=== PATIENT | female | born 1940 | race Caucasian/White ===

== ENCOUNTER 2019-05-23 07:20 | Inpatient (IN) ==
[2019-05-23] MEDS ORDERED: DILTIAZEM 50 MG/10 ML VIAL IV STA (07:44)
[2019-05-23] MEDS ORDERED: DILTIAZEM 50 MG/10 ML VIAL IV ONE (07:46)
[2019-05-23 07:50] LABS: Basophils % 0.3 % (0.0-0.8); Eosinophils # 0.2 10*3/uL (0.0-0.87); Hematocrit 46.4 VOL% (35.7-47.0); Hemoglobin 15.4 GM/DL (12.0-16.0); Immature Granulocytes % 0.3 %; Immature Granulocytes Absolute 0.03 #; Lymphocytes % 44.9 % (21.3-54.2); Mean Corpuscular HGB Conc 33.2 GM/DL (32-36); Mean Corpuscular Volume 89.6 FL (87-102); Monocytes % 7.3 % (1.7-12.7); Neutrophils % 45.2 % (38.7-73.9); Platelet Count 233 T/CUMM (130-400); Red Blood Count 5.18 MC/CUMM (3.8-5.5); Red Cell Distribution Width 12.3 % (9.3-17.3)
[2019-05-23 08:08] LABS: Alanine Aminotransferase 25 U/L (13-56); Albumin 3.9 G/DL (3.4-5.0); Alkaline Phosphatase 67 U/L (45-117); Aspartate Amino Transferase 20 U/L (0-37); Blood Urea Nitrogen 14 MG/DL (7-18); Calcium 9.8 MG/DL (8.5-10.1); Glucose 126 MG/DL (74-106); Osmolality,Calculated 277.7 MOS/KG (273-304); Total Protein 8.2 G/DL (6.4-8.3); Troponin I < 0.015 NG/ML (0.00-0.045)
[2019-05-23] MEDS ORDERED: dilTIAZem Drip 125 MG/125 ML PREMIX IV ONE (08:09)
[2019-05-23] MEDS ORDERED: ACETAMINOPHEN 325 MG TABLET PO PRN (09:05)
[2019-05-23] MEDS ORDERED: ONDANSETRON 4 MG/2 ML VIAL IV PRN (09:05)
[2019-05-23] MEDS ORDERED: NEBIVOLOL 5 MG TABLET PO SCH (11:00)
[2019-05-23 11:07] LABS: Risk Ratio 2.84; Thyroid Stimulating Hormone 3.57 uIU/ml (0.358-3.74); VLDL CHOLESTEROL 26.6 MG/DL
[2019-05-23] MEDS: dilTIAZem Drip 125 MG/125 ML PREMIX IV SCH (11:31)
[2019-05-23] MEDS: ENOXAPARIN 60 MG/0.6 ML SYRINGE SUBCUT SCH ×2 (12:10→22:20)
[2019-05-23] MEDS: CALCIUM (CARBONATE)/VITAMIN D 600 MG-400 UNIT TABLET PO SCH (12:10)
[2019-05-23] MEDS: EZETIMIBE 10 MG TABLET PO SCH (12:10)
[2019-05-23 12:57] LABS: PT Patient Result 10.5 SECS (9.6-12.2)
[2019-05-23] MEDS: DILTIAZEM 30 MG TABLET PO SCH ×2 (16:38→21:40)
[2019-05-23] MEDS: NEBIVOLOL 5 MG PO SCH ×2 (16:38→21:40)
[2019-05-23] MEDS: WARFARIN 4 MG TABLET PO SCH (18:06)
[2019-05-24 05:56] LABS: Basophils % 0.2 % (0.0-0.8); Eosinophils # 0.2 10*3/uL (0.0-0.87); Eosinophils % 2.4 % (0.00-10.9); Hematocrit 41.8 VOL% (35.7-47.0); Hemoglobin 13.9 GM/DL (12.0-16.0); Immature Granulocytes % 0.3 %; Immature Granulocytes Absolute 0.02 #; Lymphocytes # 1.8 10*3/uL (1.4-4.0); Lymphocytes % 28.9 % (21.3-54.2); Mean Corpuscular HGB Conc 33.3 GM/DL (32-36); Mean Corpuscular Volume 90.5 FL (87-102); Mean Platelet Volume 11.2 FL (9.6-12.0); Monocytes % 9.1 % (1.7-12.7); Neutrophils % 59.1 % (38.7-73.9); Platelet Count 188 T/CUMM (130-400); Red Blood Count 4.62 MC/CUMM (3.8-5.5); Red Cell Distribution Width 12.5 % (9.3-17.3); White Blood Count 6.1 T/CUMM (4-12)
[2019-05-24 06:04] LABS: PT Patient Result 10.6 SECS (9.6-12.2)
[2019-05-24 06:12] LABS: Calcium 8.8 MG/DL (8.5-10.1); Osmolality,Calculated 275.7 MOS/KG (273-304)
[2019-05-24] MEDS ORDERED: traZODone 50 MG TABLET PO PRN (08:22)
[2019-05-24] MEDS ORDERED: LACTULOSE 20 GM/30 ML UDCUP PO PRN (08:22)
[2019-05-24] MEDS ORDERED: MAGNESIUM SULF RIDER 4 GM in PREMIX 1 EACH IV PRN (08:22)
[2019-05-24] MEDS ORDERED: guaiFENesin/DM ER 600-30 MG TABLET PO PRN (08:22)
[2019-05-24] MEDS ORDERED: MAGNESIUM SULF RIDER 2 GM in PREMIX 1 EACH IV PRN (08:22)
[2019-05-24] MEDS ORDERED: DOCUSATE SODIUM 100 MG CAPSULE PO PRN (08:22)
[2019-05-24] MEDS ORDERED: POTASSIUM CHLORIDE 20 MEQ TABLET PO PRN (08:22)
[2019-05-24] MEDS ORDERED: NEBIVOLOL 5 MG PO SCH (08:34)
[2019-05-24] MEDS ORDERED: DILTIAZEM 30 MG TABLET PO SCH (09:00)
[2019-05-24] MEDS: PANTOPRAZOLE 40 MG TABLET PO SCH (09:01)
[2019-05-24] MEDS: MULTIVITAMIN (CENTRUM) TABLET PO SCH (09:01)
[2019-05-24] MEDS: OMEGA 3 ACID ETHYL ESTERS 1 GM CAPSULE PO SCH ×2 (09:02→09:08)
[2019-05-24] MEDS: ASPIRIN EC 81 MG TABLET PO SCH (09:02)
[2019-05-24] MEDS: EZETIMIBE 10 MG TABLET PO SCH (09:02)
[2019-05-24] MEDS: CALCIUM (CARBONATE)/VITAMIN D 600 MG-400 UNIT TABLET PO SCH ×2 (09:02→09:07)
[2019-05-24] MEDS: MAGNESIUM OXIDE 400 MG TABLET PO SCH (09:02)
[2019-05-24] MEDS: dilTIAZem Drip 125 MG/125 ML PREMIX IV SCH (09:12)
[2019-05-24] MEDS: OXYBUTYNIN 5 MG TABLET PO SCH (10:55)
[2019-05-24] MEDS: GLUCOSAMINE 500 MG TABLET PO SCH (10:55)
[2019-05-24] MEDS ORDERED: DILTIAZEM CD 120 MG CAPSULE PO ONE (11:36)
[2019-05-24] MEDS: CARVEDILOL 3.125 MG TABLET PO SCH ×2 (12:26→21:09)
[2019-05-24] MEDS: ENOXAPARIN 60 MG/0.6 ML SYRINGE SUBCUT SCH (12:34)
[2019-05-24] MEDS: WARFARIN 4 MG TABLET PO SCH (17:04)
[2019-05-25] MEDS: ENOXAPARIN 60 MG/0.6 ML SYRINGE SUBCUT SCH ×2 (00:51→12:14)
[2019-05-25 05:50] LABS: PT Patient Result 11.2 SECS (9.6-12.2)
[2019-05-25] MEDS ORDERED: WARFARIN 4 MG TABLET PO SCH (06:54)
[2019-05-25] MEDS ORDERED: DILTIAZEM CD 240 MG CAPSULE PO SCH (09:00)
[2019-05-25] MEDS: dilTIAZem Drip 125 MG/125 ML PREMIX IV SCH (09:50)
[2019-05-25] MEDS: OMEGA 3 ACID ETHYL ESTERS 1 GM CAPSULE PO SCH ×2 (09:51→10:00)
[2019-05-25] MEDS: MULTIVITAMIN (CENTRUM) TABLET PO SCH (09:51)
[2019-05-25] MEDS: GLUCOSAMINE 500 MG TABLET PO SCH (09:52)
[2019-05-25] MEDS: ASPIRIN EC 81 MG TABLET PO SCH (09:52)
[2019-05-25] MEDS: MAGNESIUM OXIDE 400 MG TABLET PO SCH (09:52)
[2019-05-25] MEDS: PANTOPRAZOLE 40 MG TABLET PO SCH ×2 (09:52→10:00)
[2019-05-25] MEDS: EZETIMIBE 10 MG TABLET PO SCH (09:52)
[2019-05-25] MEDS: CALCIUM (CARBONATE)/VITAMIN D 600 MG-400 UNIT TABLET PO SCH ×2 (09:52→10:00)
[2019-05-25] MEDS: CARVEDILOL 3.125 MG TABLET PO SCH (09:52)
[2019-05-25] MEDS: OXYBUTYNIN 5 MG TABLET PO SCH (09:55)
[2019-05-25 12:08] VITALS: BP 100/61
== END 2019-05-25 14:42 | disposition home or self-care (01) | DRG 309 ==
LOC: SUATTDRO → N.ED 07:20 → N.EDINP 09:05 → N.TELEN 10:57
PROVIDERS: ADMIT Internal Medicine; ATTEND Internal Medicine Cardiovascular Disease

== ENCOUNTER 2019-05-28 16:59 | Inpatient (IN) ==
[2019-05-28] MEDS ORDERED: ONDANSETRON 4 MG/2 ML VIAL IV PRN (17:01)
[2019-05-28] MEDS ORDERED: guaiFENesin/DM ER 600-30 MG TABLET PO PRN (17:01)
[2019-05-28] MEDS ORDERED: MORPHINE 4 MG/1 ML VIAL IV PRN (17:01)
[2019-05-28] MEDS ORDERED: diphenhydrAMINE CAP 25 MG CAPSULE PO PRN (17:01)
[2019-05-28] MEDS ORDERED: LACTULOSE 20 GM/30 ML UDCUP PO PRN (17:01)
[2019-05-28] MEDS ORDERED: POTASSIUM CHLORIDE 20 MEQ TABLET PO PRN (17:01)
[2019-05-28] MEDS ORDERED: MAGNESIUM SULF RIDER 4 GM in PREMIX 1 EACH IV PRN (17:01)
[2019-05-28] MEDS ORDERED: MAGNESIUM SULF RIDER 2 GM in PREMIX 1 EACH IV PRN (17:01)
[2019-05-28 20:02] LABS: Troponin I < 0.015 NG/ML (0.00-0.045)
[2019-05-28] MEDS ORDERED: DIGOXIN 0.5 MG/2 ML AMP IV ONE (20:12)
[2019-05-28] MEDS ORDERED: CARVEDILOL 3.125 MG TABLET PO SCH (21:00)
[2019-05-28] MEDS: FUROSEMIDE 40 MG/4 ML VIAL IV SCH (22:06)
[2019-05-28] MEDS: dilTIAZem Drip 125 MG/125 ML PREMIX IV SCH (22:10)
[2019-05-28 22:26] LABS: Troponin I < 0.015 NG/ML (0.00-0.045)
[2019-05-28] MEDS: ZALEPLON 5 MG CAPSULE PO PRN (22:51)
[2019-05-28] MEDS: ACETAMINOPHEN 325 MG TABLET PO PRN (22:51)
[2019-05-29] MEDS: OXYBUTYNIN 5 MG TABLET PO SCH ×3 (00:49→21:03)
[2019-05-29] MEDS: DILTIAZEM 60 MG TABLET PO SCH ×2 (00:49→09:11)
[2019-05-29 01:19] LABS: Basophils % 0.1 % (0.0-0.8); Eosinophils # 0.1 10*3/uL (0.0-0.87); Eosinophils % 1.4 % (0.00-10.9); Hematocrit 40.4 VOL% (35.7-47.0); Hemoglobin 13.7 GM/DL (12.0-16.0); Immature Granulocytes % 0.3 %; Immature Granulocytes Absolute 0.02 #; Lymphocytes % 25.5 % (21.3-54.2); Mean Corpuscular HGB Conc 33.9 GM/DL (32-36); Mean Corpuscular Volume 89.6 FL (87-102); Mean Platelet Volume 10.9 FL (9.6-12.0); Monocytes % 11.3 % (1.7-12.7); Neutrophils % 61.4 % (38.7-73.9); Platelet Count 221 T/CUMM (130-400); Red Blood Count 4.51 MC/CUMM (3.8-5.5); Red Cell Distribution Width 12.6 % (9.3-17.3)
[2019-05-29 01:35] LABS: Calcium 9.1 MG/DL (8.5-10.1); Osmolality,Calculated 276.8 MOS/KG (273-304)
[2019-05-29 01:37] LABS: INR 1.5; PT Patient Result 16.2 SECS (9.6-12.2)
[2019-05-29 01:39] LABS: Troponin I < 0.015 NG/ML (0.00-0.045)
[2019-05-29] MEDS: CARVEDILOL 3.125MG PO SCH ×2 (08:54→21:03)
[2019-05-29] MEDS: EZETIMIBE 10MG PO SCH (08:55)
[2019-05-29] MEDS: OMEGA 3 ACID ETHYL ESTERS 1 GM CAPSULE PO SCH (08:55)
[2019-05-29] MEDS: ASPIRIN EC 81 MG TABLET PO SCH (08:56)
[2019-05-29] MEDS: MAGNESIUM OXIDE 400 MG TABLET PO SCH (08:56)
[2019-05-29] MEDS: CALCIUM (CARBONATE)/VITAMIN D 600 MG-400 UNIT TABLET PO SCH (08:56)
[2019-05-29] MEDS: PANTOPRAZOLE 40 MG TABLET PO SCH (08:57)
[2019-05-29] MEDS: MULTIVITAMIN (CENTRUM) TABLET PO SCH (08:58)
[2019-05-29] MEDS ORDERED: DILTIAZEM 240 MG PO SCH (09:00)
[2019-05-29] MEDS: FUROSEMIDE 40 MG/4 ML VIAL IV SCH (09:10)
[2019-05-29] MEDS: GLUCOSAMINE 500 MG TABLET PO SCH (09:11)
[2019-05-29] MEDS: DILTIAZEM CD 120 MG CAPSULE PO SCH ×2 (10:56→21:03)
[2019-05-29] MEDS: ENOXAPARIN 60 MG/0.6 ML SYRINGE SUBCUT SCH (10:57)
[2019-05-29] MEDS: DIGOXIN 0.125 MG TABLET PO SCH (12:48)
[2019-05-29] MEDS: WARFARIN 3 MG TABLET PO SCH (17:36)
[2019-05-29] MEDS ORDERED: WARFARIN 5 MG PO SCH (18:00)
[2019-05-29] MEDS: BISACODYL 5 MG TABLET PO PRN (18:34)
[2019-05-29] MEDS: ZALEPLON 5 MG CAPSULE PO PRN (21:02)
[2019-05-29] MEDS: dilTIAZem Drip 125 MG/125 ML PREMIX IV SCH (21:08)
[2019-05-30] MEDS: ENOXAPARIN 60 MG/0.6 ML SYRINGE SUBCUT SCH ×3 (00:31→23:10)
[2019-05-30 04:48] LABS: INR 1.6; PT Patient Result 17.4 SECS (9.6-12.2)
[2019-05-30 04:48] LABS: Basophils % 0.1 % (0.0-0.8); Eosinophils # 0.2 10*3/uL (0.0-0.87); Eosinophils % 1.8 % (0.00-10.9); Hematocrit 42.1 VOL% (35.7-47.0); Hemoglobin 13.8 GM/DL (12.0-16.0); Immature Granulocytes % 0.3 %; Immature Granulocytes Absolute 0.03 #; Lymphocytes # 2.2 10*3/uL (1.4-4.0); Lymphocytes % 24.5 % (21.3-54.2); Mean Corpuscular HGB Conc 32.8 GM/DL (32-36); Mean Corpuscular Volume 91.1 FL (87-102); Mean Platelet Volume 10.8 FL (9.6-12.0); Monocytes % 8.3 % (1.7-12.7); Platelet Count 227 T/CUMM (130-400); Red Blood Count 4.62 MC/CUMM (3.8-5.5); Red Cell Distribution Width 12.5 % (9.3-17.3); White Blood Count 9.1 T/CUMM (4-12)
[2019-05-30 05:09] LABS: Calcium 8.9 MG/DL (8.5-10.1); Calcium 9.4 MG/DL (8.5-10.1); Osmolality,Calculated 275.1 MOS/KG (273-304)
[2019-05-30] MEDS: MAGNESIUM OXIDE 400 MG TABLET PO SCH (08:53)
[2019-05-30] MEDS: ASPIRIN EC 81 MG TABLET PO SCH (08:54)
[2019-05-30] MEDS: MULTIVITAMIN (CENTRUM) TABLET PO SCH (08:54)
[2019-05-30] MEDS: GLUCOSAMINE 500 MG TABLET PO SCH (08:55)
[2019-05-30] MEDS: CALCIUM (CARBONATE)/VITAMIN D 600 MG-400 UNIT TABLET PO SCH (08:55)
[2019-05-30] MEDS: OXYBUTYNIN 5 MG TABLET PO SCH ×2 (08:55→20:34)
[2019-05-30] MEDS: DILTIAZEM CD 120 MG CAPSULE PO SCH (08:57)
[2019-05-30] MEDS: OMEGA 3 ACID ETHYL ESTERS 1 GM CAPSULE PO SCH (08:57)
[2019-05-30] MEDS: PANTOPRAZOLE 40 MG TABLET PO SCH (09:02)
[2019-05-30] MEDS: CARVEDILOL 3.125MG PO SCH ×2 (09:04→20:33)
[2019-05-30] MEDS: EZETIMIBE 10MG PO SCH (09:04)
[2019-05-30] MEDS ORDERED: DILTIAZEM 60 MG TABLET PO ONE (11:59)
[2019-05-30] MEDS: DIGOXIN 0.125 MG TABLET PO SCH (12:37)
[2019-05-30 15:45] LABS: Apearance,Urine CLEAR (Clear); Bilirubin,Urine Negative (Negative); Blood, Urine Negative (Negative); Glucose,Urine (UA) Negative (Negative); Ketones,Urine Negative (Negative); Nitrite,Urine Negative (Negative); Protein,Urine Negative; RBC,Urine <1 /HPF (0-4); Squamous Epithelial Cell,Urine Occasional /HPF (0-10); Urine Color Straw (Yellow); Urine Specific Gravity 1.004 (1.001-1.035); Urine Urobilinogen < 2.0 EU/DL (0.2-1.0); WBC,Urine <1 /HPF (0-6)
[2019-05-30] MEDS: WARFARIN 3 MG TABLET PO SCH (18:03)
[2019-05-30] MEDS: dilTIAZem Drip 125 MG/125 ML PREMIX IV SCH (19:12)
[2019-05-30] MEDS: DILTIAZEM CD 180 MG CAPSULE PO SCH (20:33)
[2019-05-30] MEDS: ACETAMINOPHEN 325 MG TABLET PO PRN (20:34)
[2019-05-31 05:23] LABS: Basophils % 0.4 % (0.0-0.8); Eosinophils # 0.2 10*3/uL (0.0-0.87); Eosinophils % 2.7 % (0.00-10.9); Hematocrit 39.3 VOL% (35.7-47.0); Immature Granulocytes % 0.2 %; Immature Granulocytes Absolute 0.01 #; Lymphocytes # 2.1 10*3/uL (1.4-4.0); Lymphocytes % 37.8 % (21.3-54.2); Mean Corpuscular HGB Conc 33.1 GM/DL (32-36); Mean Corpuscular Volume 91.2 FL (87-102); Mean Platelet Volume 11.5 FL (9.6-12.0); Monocytes % 11.1 % (1.7-12.7); Neutrophils % 47.8 % (38.7-73.9); Platelet Count 217 T/CUMM (130-400); Red Blood Count 4.31 MC/CUMM (3.8-5.5); Red Cell Distribution Width 12.3 % (9.3-17.3); White Blood Count 5.6 T/CUMM (4-12)
[2019-05-31 05:50] LABS: Calcium 9.2 MG/DL (8.5-10.1); Osmolality,Calculated 277.7 MOS/KG (273-304)
[2019-05-31 09:40] LABS: INR 2.1
[2019-05-31 09:45] LABS: PT Patient Result 22.7 SECS (9.6-12.2)
[2019-05-31] MEDS: DILTIAZEM CD 180 MG CAPSULE PO SCH ×2 (12:13→21:33)
[2019-05-31] MEDS: DIGOXIN 0.125 MG TABLET PO SCH (12:13)
[2019-05-31] MEDS: MAGNESIUM OXIDE 400 MG TABLET PO SCH (12:14)
[2019-05-31] MEDS: ASPIRIN EC 81 MG TABLET PO SCH (12:14)
[2019-05-31] MEDS ORDERED: ETOMIDATE 40 MG/20 ML VIAL IV ONE (13:19)
[2019-05-31] MEDS ORDERED: LIDOCAINE 100 MG/5 ML SYRINGE ONE (13:19)
[2019-05-31] MEDS ORDERED: PROPOFOL 200 MG/20 ML VIAL IV ONE (13:19)
[2019-05-31] MEDS: CALCIUM (CARBONATE)/VITAMIN D 600 MG-400 UNIT TABLET PO SCH (13:40)
[2019-05-31] MEDS: MULTIVITAMIN (CENTRUM) TABLET PO SCH (13:40)
[2019-05-31] MEDS: GLUCOSAMINE 500 MG TABLET PO SCH (13:41)
[2019-05-31] MEDS: OXYBUTYNIN 5 MG TABLET PO SCH ×2 (13:41→21:35)
[2019-05-31] MEDS: OMEGA 3 ACID ETHYL ESTERS 1 GM CAPSULE PO SCH (13:41)
[2019-05-31] MEDS: CARVEDILOL 3.125MG PO SCH ×2 (14:21→21:33)
[2019-05-31] MEDS: PANTOPRAZOLE 40 MG TABLET PO SCH (14:21)
[2019-05-31] MEDS: EZETIMIBE 10MG PO SCH (14:21)
[2019-05-31] MEDS: AMIODARONE 200 MG TABLET PO SCH ×2 (14:45→21:35)
[2019-05-31] MEDS: WARFARIN 3 MG TABLET PO SCH (17:31)
[2019-05-31] MEDS: BISACODYL 5 MG TABLET PO PRN (17:34)
[2019-05-31] MEDS: dilTIAZem Drip 125 MG/125 ML PREMIX IV SCH (20:40)
[2019-05-31] MEDS: ZALEPLON 5 MG CAPSULE PO PRN (21:39)
[2019-05-31] MEDS: ACETAMINOPHEN 325 MG TABLET PO PRN (21:39)
[2019-06-01 05:16] LABS: Basophils % 0.2 % (0.0-0.8); Eosinophils # 0.1 10*3/uL (0.0-0.87); Eosinophils % 2.1 % (0.00-10.9); Hemoglobin 11.7 GM/DL (12.0-16.0); Immature Granulocytes % 0.4 %; Immature Granulocytes Absolute 0.02 #; Lymphocytes # 1.8 10*3/uL (1.4-4.0); Lymphocytes % 33.3 % (21.3-54.2); Mean Corpuscular HGB Conc 33.4 GM/DL (32-36); Mean Corpuscular Volume 90.7 FL (87-102); Mean Platelet Volume 11.6 FL (9.6-12.0); Platelet Count 198 T/CUMM (130-400); Red Blood Count 3.86 MC/CUMM (3.8-5.5); Red Cell Distribution Width 12.4 % (9.3-17.3); White Blood Count 5.3 T/CUMM (4-12)
[2019-06-01 05:25] LABS: INR 2.2
[2019-06-01 05:31] LABS: PT Patient Result 23.4 SECS (9.6-12.2)
[2019-06-01 06:12] LABS: Calcium 8.6 MG/DL (8.5-10.1)
[2019-06-01] MEDS: CALCIUM (CARBONATE)/VITAMIN D 600 MG-400 UNIT TABLET PO SCH (10:53)
[2019-06-01] MEDS: ASPIRIN EC 81 MG TABLET PO SCH (10:53)
[2019-06-01] MEDS: DILTIAZEM CD 180 MG CAPSULE PO SCH (10:55)
[2019-06-01] MEDS: AMIODARONE 200 MG TABLET PO SCH (10:56)
[2019-06-01] MEDS: OXYBUTYNIN 5 MG TABLET PO SCH ×2 (10:56→20:34)
[2019-06-01] MEDS: PANTOPRAZOLE 40 MG TABLET PO SCH (11:00)
[2019-06-01] MEDS: MULTIVITAMIN (CENTRUM) TABLET PO SCH (11:01)
[2019-06-01] MEDS: EZETIMIBE 10MG PO SCH (11:02)
[2019-06-01] MEDS: OMEGA 3 ACID ETHYL ESTERS 1 GM CAPSULE PO SCH (11:03)
[2019-06-01] MEDS: GLUCOSAMINE 500 MG TABLET PO SCH (11:04)
[2019-06-01] MEDS: MAGNESIUM OXIDE 400 MG TABLET PO SCH (11:18)
[2019-06-01] MEDS: CARVEDILOL 3.125MG PO SCH (11:18)
[2019-06-01] MEDS ORDERED: ATROPINE 1 MG/10 ML SYRINGE IV PRN (16:09)
[2019-06-01] MEDS: WARFARIN 3 MG TABLET PO SCH (19:10)
[2019-06-01] MEDS: ZALEPLON 5 MG CAPSULE PO PRN (20:38)
[2019-06-01] MEDS: ACETAMINOPHEN 325 MG TABLET PO PRN (20:39)
[2019-06-02 04:12] LABS: Basophils % 0.2 % (0.0-0.8); Eosinophils # 0.1 10*3/uL (0.0-0.87); Eosinophils % 0.7 % (0.00-10.9); Hematocrit 35.8 VOL% (35.7-47.0); Hemoglobin 11.8 GM/DL (12.0-16.0); Immature Granulocytes % 0.2 %; Immature Granulocytes Absolute 0.02 #; Lymphocytes # 2.1 10*3/uL (1.4-4.0); Lymphocytes % 26.5 % (21.3-54.2); Mean Corpuscular Volume 90.2 FL (87-102); Mean Platelet Volume 11.2 FL (9.6-12.0); Monocytes % 10.5 % (1.7-12.7); Neutrophils % 61.9 % (38.7-73.9); Platelet Count 179 T/CUMM (130-400); Red Blood Count 3.97 MC/CUMM (3.8-5.5); Red Cell Distribution Width 12.2 % (9.3-17.3)
[2019-06-02 04:20] LABS: INR 2.8
[2019-06-02] MEDS: ACETAMINOPHEN 325 MG TABLET PO PRN ×2 (04:32→20:53)
[2019-06-02 04:34] LABS: Calcium 8.9 MG/DL (8.5-10.1); Osmolality,Calculated 274.7 MOS/KG (273-304)
[2019-06-02] MEDS: ASPIRIN EC 81 MG TABLET PO SCH (08:53)
[2019-06-02] MEDS: MULTIVITAMIN (CENTRUM) TABLET PO SCH (08:54)
[2019-06-02] MEDS: CALCIUM (CARBONATE)/VITAMIN D 600 MG-400 UNIT TABLET PO SCH (08:54)
[2019-06-02] MEDS: OXYBUTYNIN 5 MG TABLET PO SCH ×2 (08:56→20:53)
[2019-06-02] MEDS: EZETIMIBE 10MG PO SCH (09:01)
[2019-06-02] MEDS: GLUCOSAMINE 500 MG TABLET PO SCH (09:53)
[2019-06-02] MEDS: PANTOPRAZOLE 40 MG TABLET PO SCH (09:54)
[2019-06-02] MEDS: MAGNESIUM OXIDE 400 MG TABLET PO SCH (09:54)
[2019-06-02] MEDS: OMEGA 3 ACID ETHYL ESTERS 1 GM CAPSULE PO SCH (09:54)
[2019-06-02] MEDS ORDERED: WARFARIN 5 MG TABLET PO SCH (11:19)
[2019-06-02] MEDS: AMIODARONE 200 MG TABLET PO SCH (20:53)
[2019-06-02] MEDS: ZALEPLON 5 MG CAPSULE PO PRN (20:53)
[2019-06-03 05:50] LABS: Basophils % 0.3 % (0.0-0.8); Eosinophils # 0.1 10*3/uL (0.0-0.87); Hematocrit 35.6 VOL% (35.7-47.0); Hemoglobin 11.8 GM/DL (12.0-16.0); Immature Granulocytes % 0.2 %; Immature Granulocytes Absolute 0.01 #; Lymphocytes # 1.6 10*3/uL (1.4-4.0); Lymphocytes % 23.6 % (21.3-54.2); Mean Corpuscular HGB Conc 33.1 GM/DL (32-36); Mean Corpuscular Volume 90.8 FL (87-102); Mean Platelet Volume 11.4 FL (9.6-12.0); Monocytes % 11.5 % (1.7-12.7); Neutrophils % 62.4 % (38.7-73.9); Platelet Count 174 T/CUMM (130-400); Red Blood Count 3.92 MC/CUMM (3.8-5.5); Red Cell Distribution Width 12.3 % (9.3-17.3); White Blood Count 6.6 T/CUMM (4-12)
[2019-06-03 06:02] LABS: INR 3.6; PT Patient Result 39.1 SECS (9.6-12.2)
[2019-06-03 06:08] LABS: Calcium 8.8 MG/DL (8.5-10.1); Osmolality,Calculated 279.3 MOS/KG (273-304)
[2019-06-03] MEDS: PANTOPRAZOLE 40 MG TABLET PO SCH (08:31)
[2019-06-03] MEDS: OXYBUTYNIN 5 MG TABLET PO SCH ×2 (08:32→20:45)
[2019-06-03] MEDS: ASPIRIN EC 81 MG TABLET PO SCH (08:32)
[2019-06-03] MEDS: OMEGA 3 ACID ETHYL ESTERS 1 GM CAPSULE PO SCH (08:32)
[2019-06-03] MEDS: GLUCOSAMINE 500 MG TABLET PO SCH (08:35)
[2019-06-03] MEDS: AMIODARONE 200 MG TABLET PO SCH (08:37)
[2019-06-03] MEDS: CALCIUM (CARBONATE)/VITAMIN D 600 MG-400 UNIT TABLET PO SCH (08:38)
[2019-06-03] MEDS: MULTIVITAMIN (CENTRUM) TABLET PO SCH (08:38)
[2019-06-03] MEDS: MAGNESIUM OXIDE 400 MG TABLET PO SCH (08:38)
[2019-06-03] MEDS: EZETIMIBE 10MG PO SCH (11:35)
[2019-06-03] MEDS ORDERED: WARFARIN 4 MG TABLET PO SCH (18:00)
[2019-06-03] MEDS: ZALEPLON 5 MG CAPSULE PO PRN (20:45)
[2019-06-03] MEDS: ACETAMINOPHEN 325 MG TABLET PO PRN (20:45)
[2019-06-03] MEDS ORDERED: EZETIMIBE 10MG PO SCH (21:00)
[2019-06-04 05:06] LABS: Basophils % 0.3 % (0.0-0.8); Eosinophils # 0.1 10*3/uL (0.0-0.87); Hematocrit 35.9 VOL% (35.7-47.0); Hemoglobin 11.8 GM/DL (12.0-16.0); Immature Granulocytes % 0.2 %; Immature Granulocytes Absolute 0.01 #; Lymphocytes % 33.8 % (21.3-54.2); Mean Corpuscular HGB Conc 32.9 GM/DL (32-36); Mean Corpuscular Volume 90.4 FL (87-102); Mean Platelet Volume 11.2 FL (9.6-12.0); Monocytes % 12.5 % (1.7-12.7); Neutrophils % 51.2 % (38.7-73.9); Platelet Count 196 T/CUMM (130-400); Red Blood Count 3.97 MC/CUMM (3.8-5.5); Red Cell Distribution Width 12.2 % (9.3-17.3); White Blood Count 5.9 T/CUMM (4-12)
[2019-06-04 05:20] LABS: Calcium 9.4 MG/DL (8.5-10.1); Osmolality,Calculated 278.4 MOS/KG (273-304)
[2019-06-04 05:21] LABS: PT Patient Result 32.7 SECS (9.6-12.2)
[2019-06-04 08:45] VITALS: BP 157/63
[2019-06-04] MEDS: GLUCOSAMINE 500 MG TABLET PO SCH (10:13)
[2019-06-04] MEDS: ASPIRIN EC 81 MG TABLET PO SCH (10:16)
[2019-06-04] MEDS: OXYBUTYNIN 5 MG TABLET PO SCH (10:16)
[2019-06-04] MEDS: MULTIVITAMIN (CENTRUM) TABLET PO SCH (10:16)
[2019-06-04] MEDS: PANTOPRAZOLE 40 MG TABLET PO SCH (10:16)
[2019-06-04] MEDS: OMEGA 3 ACID ETHYL ESTERS 1 GM CAPSULE PO SCH (10:16)
[2019-06-04] MEDS: CALCIUM (CARBONATE)/VITAMIN D 600 MG-400 UNIT TABLET PO SCH (10:17)
[2019-06-04] MEDS: MAGNESIUM OXIDE 400 MG TABLET PO SCH (10:17)
== END 2019-06-04 12:16 | disposition home or self-care (01) | DRG 310 ==
LOC: N.TELEN 18:55 → N.ICU 06-01 16:07 → N.TELES 06-02 15:30
PROVIDERS: ADMIT Internal Medicine Cardiovascular Disease; ATTEND Internal Medicine Cardiovascular Disease

== ENCOUNTER 2019-11-06 15:02 | Inpatient (IN) ==
[2019-11-06 15:35] LABS: Basophils % 0.2 % (0.0-0.8); Eosinophils # 0.1 10*3/uL (0.0-0.87); Eosinophils % 0.6 % (0.00-10.9); Hematocrit 39.6 VOL% (35.7-47.0); Hemoglobin 13.4 GM/DL (12.0-16.0); Immature Granulocytes % 0.1 %; Immature Granulocytes Absolute 0.01 #; Lymphocytes # 3.3 10*3/uL (1.4-4.0); Lymphocytes % 34.4 % (21.3-54.2); Mean Corpuscular HGB Conc 33.8 GM/DL (32-36); Mean Corpuscular Volume 91.5 FL (87-102); Mean Platelet Volume 10.8 FL (9.6-12.0); Monocytes % 8.4 % (1.7-12.7); Neutrophils % 56.3 % (38.7-73.9); Platelet Count 231 T/CUMM (130-400); Red Blood Count 4.33 MC/CUMM (3.8-5.5); Red Cell Distribution Width 12.4 % (9.3-17.3); White Blood Count 9.7 T/CUMM (4-12)
[2019-11-06 15:43] LABS: Partial Thromboplastin Time 30.8 SECS (20.8-36.0)
[2019-11-06 15:48] LABS: INR 2.1
[2019-11-06 15:53] LABS: Bilirubin,Total 0.4 MG/DL (0.2-1.0); Calcium 9.6 MG/DL (8.5-10.1); Total Protein 7.9 G/DL (6.4-8.3)
[2019-11-06 16:29] LABS: PT Patient Result 22.8 SECS (9.6-12.2)
[2019-11-06] MEDS ORDERED: METOPROLOL TARTRATE 5 MG/5 ML VIAL IV STA (16:52)
[2019-11-06] MEDS ORDERED: LORazepam 2 MG/1 ML VIAL IV STA (17:08)
[2019-11-06] MEDS ORDERED: LORazepam 2 MG/1 ML VIAL ONE (17:15)
[2019-11-06] MEDS ORDERED: ONDANSETRON 4 MG/2 ML VIAL IV PRN (18:48)
[2019-11-06] MEDS ORDERED: DEXTROSE 10% 250 ML BAG IV PRN (18:48)
[2019-11-06] MEDS ORDERED: GLUCAGON 1 MG VIAL IM PRN (18:48)
[2019-11-06] MEDS ORDERED: METOPROLOL TARTRATE 5 MG/5 ML VIAL IV ONE (18:56)
[2019-11-06] MEDS: LACTATED RINGERS 1,000 ML IV SCH (21:19)
[2019-11-06] MEDS: CETIRIZINE 10 MG TABLET PO SCH (21:21)
[2019-11-06] MEDS: EZETIMIBE 10 MG TABLET PO SCH (21:21)
[2019-11-06] MEDS: OXYBUTYNIN 5 MG TABLET PO SCH (21:22)
[2019-11-06 23:41] LABS: Troponin I < 0.015 NG/ML (0.00-0.045)
[2019-11-07 05:35] LABS: Basophils % 0.2 % (0.0-0.8); Eosinophils # 0.1 10*3/uL (0.0-0.87); Hematocrit 35.6 VOL% (35.7-47.0); Hemoglobin 11.5 GM/DL (12.0-16.0); Lymphocytes # 2.2 10*3/uL (1.4-4.0); Lymphocytes % 36.2 % (21.3-54.2); Mean Corpuscular HGB Conc 32.3 GM/DL (32-36); Mean Corpuscular Volume 94.4 FL (87-102); Mean Platelet Volume 10.9 FL (9.6-12.0); Monocytes % 8.7 % (1.7-12.7); Neutrophils % 52.9 % (38.7-73.9); Platelet Count 188 T/CUMM (130-400); Red Blood Count 3.77 MC/CUMM (3.8-5.5); Red Cell Distribution Width 12.4 % (9.3-17.3); White Blood Count 6.1 T/CUMM (4-12)
[2019-11-07 05:58] LABS: Troponin I < 0.015 NG/ML (0.00-0.045)
[2019-11-07] MEDS ORDERED: VERAPAMIL SR 120 MG TABLET PO SCH (09:00)
[2019-11-07] MEDS ORDERED: NEBIVOLOL 5 MG TABLET PO SCH ×2 (09:00)
[2019-11-07] MEDS: OMEGA 3 ACID ETHYL ESTERS 1 GM CAPSULE PO SCH (09:20)
[2019-11-07] MEDS: ASPIRIN EC 81 MG TABLET PO SCH (09:20)
[2019-11-07] MEDS: GLUCOSAMINE 500 MG TABLET PO SCH (09:20)
[2019-11-07] MEDS: PANTOPRAZOLE 40 MG TABLET PO SCH (09:21)
[2019-11-07] MEDS: MAGNESIUM OXIDE 400 MG TABLET PO SCH (09:21)
[2019-11-07] MEDS: OXYBUTYNIN 5 MG TABLET PO SCH ×2 (09:21→21:07)
[2019-11-07] MEDS: MULTIVITAMIN (CENTRUM) TABLET PO SCH (09:22)
[2019-11-07] MEDS: CALCIUM (CARBONATE)/VITAMIN D 600 MG-400 UNIT TABLET PO SCH (09:22)
[2019-11-07] MEDS: LORazepam 0.5 MG TABLET PO SCH ×2 (10:00→21:07)
[2019-11-07] MEDS ORDERED: dilTIAZem Drip 125 MG/125 ML PREMIX IV SCH (10:00)
[2019-11-07] MEDS: DILTIAZEM CD 120 MG CAPSULE PO SCH (10:05)
[2019-11-07 10:09] LABS: Apearance,Urine CLEAR (Clear); Bilirubin,Urine Negative (Negative); Blood, Urine Negative (Negative); Glucose,Urine (UA) Negative (Negative); Ketones,Urine Negative (Negative); Nitrite,Urine Negative (Negative); Protein,Urine Negative; RBC,Urine 2 /HPF (0-4); Urine Color Straw (Yellow); Urine Specific Gravity 1.005 (1.001-1.035); Urine Urobilinogen < 2.0 EU/DL (0.2-1.0); WBC,Urine <1 /HPF (0-6)
[2019-11-07 12:26] LABS: INR 2.2; Partial Thromboplastin Time 31.7 SECS (20.8-36.0)
[2019-11-07 12:30] LABS: Risk Ratio 3.39; VLDL CHOLESTEROL 40.2 MG/DL
[2019-11-07 12:33] LABS: PT Patient Result 23.4 SECS (9.6-12.2)
[2019-11-07] MEDS: METOPROLOL TARTRATE 25 MG TABLET PO SCH ×2 (12:49→21:07)
[2019-11-07] MEDS: LACTATED RINGERS 1,000 ML IV SCH (14:29)
[2019-11-07] MEDS ORDERED: METOPROLOL TARTRATE 5 MG/5 ML VIAL IV ONE (15:30)
[2019-11-07 17:07] LABS: Basophils % 0.1 % (0.0-0.8); Eosinophils # 0.2 10*3/uL (0.0-0.87); Eosinophils % 1.7 % (0.00-10.9); Hematocrit 38.1 VOL% (35.7-47.0); Hemoglobin 12.1 GM/DL (12.0-16.0); Immature Granulocytes % 0.3 %; Immature Granulocytes Absolute 0.03 #; Lymphocytes # 2.6 10*3/uL (1.4-4.0); Lymphocytes % 29.9 % (21.3-54.2); Mean Corpuscular HGB Conc 31.8 GM/DL (32-36); Mean Corpuscular Volume 96.5 FL (87-102); Mean Platelet Volume 10.9 FL (9.6-12.0); Monocytes % 7.3 % (1.7-12.7); Neutrophils % 60.7 % (38.7-73.9); Platelet Count 216 T/CUMM (130-400); Red Blood Count 3.95 MC/CUMM (3.8-5.5); Red Cell Distribution Width 12.6 % (9.3-17.3); White Blood Count 8.7 T/CUMM (4-12)
[2019-11-07 17:34] LABS: Albumin 3.5 G/DL (3.4-5.0); Bilirubin,Total 0.4 MG/DL (0.2-1.0); Calcium 9.1 MG/DL (8.5-10.1); Osmolality,Calculated 275.1 MOS/KG (273-304); Total Protein 6.8 G/DL (6.4-8.3)
[2019-11-07] MEDS: WARFARIN 4 MG TABLET PO SCH (18:48)
[2019-11-07] MEDS: EZETIMIBE 10 MG TABLET PO SCH (21:06)
[2019-11-07] MEDS: CETIRIZINE 10 MG TABLET PO SCH (21:06)
[2019-11-08 06:14] LABS: Basophils % 0.3 % (0.0-0.8); Eosinophils # 0.1 10*3/uL (0.0-0.87); Eosinophils % 2.3 % (0.00-10.9); Hematocrit 34.8 VOL% (35.7-47.0); Hemoglobin 11.3 GM/DL (12.0-16.0); Immature Granulocytes % 0.2 %; Immature Granulocytes Absolute 0.01 #; Lymphocytes # 1.8 10*3/uL (1.4-4.0); Lymphocytes % 30.1 % (21.3-54.2); Mean Corpuscular HGB Conc 32.5 GM/DL (32-36); Mean Corpuscular Volume 95.3 FL (87-102); Monocytes % 8.8 % (1.7-12.7); Neutrophils % 58.3 % (38.7-73.9); Platelet Count 171 T/CUMM (130-400); Red Blood Count 3.65 MC/CUMM (3.8-5.5); Red Cell Distribution Width 12.6 % (9.3-17.3)
[2019-11-08 06:21] LABS: INR 2.4
[2019-11-08 06:28] LABS: PT Patient Result 25.9 SECS (9.6-12.2)
[2019-11-08 06:30] LABS: Calcium 8.6 MG/DL (8.5-10.1); Osmolality,Calculated 277.5 MOS/KG (273-304)
[2019-11-08 07:13] LABS: Hypochromasia 1+; Ovalocytes Slight; Platelet Estimate Adequate
[2019-11-08] MEDS: OMEGA 3 ACID ETHYL ESTERS 1 GM CAPSULE PO SCH (09:21)
[2019-11-08] MEDS: ASPIRIN EC 81 MG TABLET PO SCH (09:21)
[2019-11-08] MEDS: DILTIAZEM CD 120 MG CAPSULE PO SCH (09:22)
[2019-11-08] MEDS: MULTIVITAMIN (CENTRUM) TABLET PO SCH (09:23)
[2019-11-08] MEDS: MAGNESIUM OXIDE 400 MG TABLET PO SCH (09:24)
[2019-11-08] MEDS: PANTOPRAZOLE 40 MG TABLET PO SCH (09:25)
[2019-11-08] MEDS: LORazepam 0.5 MG TABLET PO SCH ×2 (09:25→23:58)
[2019-11-08] MEDS: OXYBUTYNIN 5 MG TABLET PO SCH ×2 (09:25→23:58)
[2019-11-08] MEDS: GLUCOSAMINE 500 MG TABLET PO SCH (09:26)
[2019-11-08] MEDS: METOPROLOL TARTRATE 25 MG TABLET PO SCH ×2 (09:26→20:59)
[2019-11-08] MEDS: CALCIUM (CARBONATE)/VITAMIN D 600 MG-400 UNIT TABLET PO SCH (09:28)
[2019-11-08] MEDS ORDERED: DOCUSATE SODIUM 100 MG CAPSULE PO PRN (09:59)
[2019-11-08] MEDS ORDERED: LACTULOSE 20 GM/30 ML UDCUP PO PRN (09:59)
[2019-11-08] MEDS ORDERED: LORazepam 2 MG/1 ML VIAL IV PRN (13:11)
[2019-11-08] MEDS ORDERED: MECLIZINE 12.5 MG TABLET PO PRN (13:13)
[2019-11-08] MEDS: FOLIC ACID 1 MG TABLET PO SCH (14:03)
[2019-11-08] MEDS: THIAMINE 100 MG TABLET PO SCH (14:03)
[2019-11-08] MEDS: WARFARIN 4 MG TABLET PO SCH (18:42)
[2019-11-08] MEDS: CETIRIZINE 10 MG TABLET PO SCH (20:57)
[2019-11-08] MEDS: EZETIMIBE 10 MG TABLET PO SCH (20:58)
[2019-11-09 04:39] LABS: Basophils % 0.5 % (0.0-0.8); Eosinophils # 0.2 10*3/uL (0.0-0.87); Eosinophils % 2.9 % (0.00-10.9); Hematocrit 35.8 VOL% (35.7-47.0); Hemoglobin 11.9 GM/DL (12.0-16.0); Immature Granulocytes % 0.2 %; Immature Granulocytes Absolute 0.01 #; Lymphocytes # 2.2 10*3/uL (1.4-4.0); Mean Corpuscular HGB Conc 33.2 GM/DL (32-36); Mean Corpuscular Volume 93.7 FL (87-102); Mean Platelet Volume 11.6 FL (9.6-12.0); Monocytes % 9.6 % (1.7-12.7); Neutrophils % 48.8 % (38.7-73.9); Platelet Count 184 T/CUMM (130-400); Red Blood Count 3.82 MC/CUMM (3.8-5.5); Red Cell Distribution Width 12.5 % (9.3-17.3); White Blood Count 5.8 T/CUMM (4-12)
[2019-11-09 05:00] LABS: Calcium 8.8 MG/DL (8.5-10.1); Osmolality,Calculated 277.5 MOS/KG (273-304)
[2019-11-09] MEDS: GLUCOSAMINE 500 MG TABLET PO SCH (09:31)
[2019-11-09] MEDS: THIAMINE 100 MG TABLET PO SCH (09:32)
[2019-11-09] MEDS: OXYBUTYNIN 5 MG TABLET PO SCH (09:32)
[2019-11-09] MEDS: OMEGA 3 ACID ETHYL ESTERS 1 GM CAPSULE PO SCH (09:32)
[2019-11-09] MEDS: MULTIVITAMIN (CENTRUM) TABLET PO SCH (09:32)
[2019-11-09] MEDS: PANTOPRAZOLE 40 MG TABLET PO SCH (09:33)
[2019-11-09] MEDS: CALCIUM (CARBONATE)/VITAMIN D 600 MG-400 UNIT TABLET PO SCH (09:33)
[2019-11-09] MEDS: FOLIC ACID 1 MG TABLET PO SCH (09:33)
[2019-11-09] MEDS: MAGNESIUM OXIDE 400 MG TABLET PO SCH (09:33)
[2019-11-09] MEDS: DILTIAZEM CD 120 MG CAPSULE PO SCH (09:34)
[2019-11-09] MEDS: LORazepam 0.5 MG TABLET PO SCH (09:34)
[2019-11-09] MEDS: ASPIRIN EC 81 MG TABLET PO SCH (09:35)
[2019-11-09] MEDS: METOPROLOL TARTRATE 25 MG TABLET PO SCH (09:40)
[2019-11-09 12:30] VITALS: BP 126/97
== END 2019-11-09 15:30 | disposition home or self-care (01) | DRG 309 ==
LOC: N.ED 15:02 → N.EDINP 15:02 → N.4E 19:27 → N.TELEN 11-07 11:52
PROVIDERS: ADMIT Internal Medicine; ATTEND Internal Medicine

== ENCOUNTER 2019-11-26 11:01 | Inpatient (IN) ==
[2019-11-26 11:28] LABS: Basophils % 0.2 % (0.0-0.8); Eosinophils # 0.1 10*3/uL (0.0-0.87); Eosinophils % 0.7 % (0.00-10.9); Hematocrit 38.8 VOL% (35.7-47.0); Hemoglobin 12.3 GM/DL (12.0-16.0); Immature Granulocytes % 0.2 %; Immature Granulocytes Absolute 0.02 #; Lymphocytes # 2.1 10*3/uL (1.4-4.0); Lymphocytes % 22.3 % (21.3-54.2); Mean Corpuscular HGB Conc 31.7 GM/DL (32-36); Mean Corpuscular Volume 96.3 FL (87-102); Mean Platelet Volume 11.3 FL (9.6-12.0); Monocytes % 7.2 % (1.7-12.7); Neutrophils % 69.4 % (38.7-73.9); Platelet Count 186 T/CUMM (130-400); Red Blood Count 4.03 MC/CUMM (3.8-5.5); Red Cell Distribution Width 13.3 % (9.3-17.3); White Blood Count 9.2 T/CUMM (4-12)
[2019-11-26] MEDS ORDERED: DILTIAZEM 50 MG/10 ML VIAL IV STA (11:57)
[2019-11-26 12:09] LABS: Albumin 3.5 G/DL (3.4-5.0); Bilirubin,Total 0.6 MG/DL (0.2-1.0); Calcium 9.4 MG/DL (8.5-10.1); Thyroid Stimulating Hormone 2.55 uIU/ml (0.358-3.74); Total Protein 6.8 G/DL (6.4-8.3)
[2019-11-26 12:26] LABS: INR 2.2
[2019-11-26 12:32] LABS: PT Patient Result 23.9 SECS (9.6-12.2)
[2019-11-26] MEDS: dilTIAZem Drip 125 MG/125 ML PREMIX IV SCH (12:34)
[2019-11-26 12:35] LABS: Apearance,Urine CLEAR (Clear); Bilirubin,Urine Negative (Negative); Blood, Urine Negative (Negative); Glucose,Urine (UA) Negative (Negative); Hyaline Casts,Urine 1 /LPF (0-3); Ketones,Urine Negative (Negative); Mucus,Urine Occasional /LPF (Occasional); Nitrite,Urine Negative (Negative); Protein,Urine Negative; RBC,Urine 2 /HPF (0-4); Squamous Epithelial Cell,Urine Occasional /HPF (0-10); Urine Color Yellow (Yellow); Urine Specific Gravity 1.018 (1.001-1.035); Urine Urobilinogen < 2.0 EU/DL (0.2-1.0); WBC,Urine 1 /HPF (0-6)
[2019-11-26] MEDS ORDERED: MAGNESIUM SULF RIDER 4 GM in PREMIX 1 EACH IV PRN (12:41)
[2019-11-26] MEDS ORDERED: diphenhydrAMINE CAP 25 MG CAPSULE PO PRN (12:41)
[2019-11-26] MEDS ORDERED: hydrALAZINE 20 MG/1 ML VIAL IV PRN (12:41)
[2019-11-26] MEDS ORDERED: POTASSIUM CHLORIDE 20 MEQ TABLET PO PRN (12:41)
[2019-11-26] MEDS ORDERED: CALCIUM CARBONATE CHEW 500 MG TABLET PO PRN (12:41)
[2019-11-26] MEDS ORDERED: BISACODYL 5 MG TABLET PO PRN (12:41)
[2019-11-26] MEDS ORDERED: ONDANSETRON 4 MG/2 ML VIAL IV PRN (12:41)
[2019-11-26] MEDS ORDERED: SIMETHICONE CHEW 125 MG TABLET PO PRN (12:41)
[2019-11-26] MEDS ORDERED: guaiFENesin/DM ER 600-30 MG TABLET PO PRN (12:41)
[2019-11-26] MEDS ORDERED: MORPHINE 4 MG/1 ML VIAL IV PRN (12:41)
[2019-11-26] MEDS ORDERED: MAGNESIUM SULF RIDER 2 GM in PREMIX 1 EACH IV PRN (12:41)
[2019-11-26] MEDS ORDERED: ALUMINUM/MAGNES/SIMETH MAX STR 30 ML UDCUP PO PRN (12:41)
[2019-11-26] MEDS ORDERED: LACTULOSE 20 GM/30 ML UDCUP PO PRN (12:41)
[2019-11-26 12:53] LABS: Barbiturates Screen,Urine Negative (Negative); Benzodiazepines Screen,Urine Negative (Negative); Cannabinoid Screen,Urine Negative (Negative); Opiate Screen,Urine Negative (Negative); Phencyclidine Screen,Urine Negative (Negative)
[2019-11-26 15:26] LABS: Troponin I < 0.015 NG/ML (0.00-0.045)
[2019-11-26] MEDS: DILTIAZEM 30 MG TABLET PO SCH ×2 (15:28→21:32)
[2019-11-26] MEDS: ACETAMINOPHEN 325 MG TABLET PO PRN (15:29)
[2019-11-26 17:24] LABS: Troponin I 0.023 NG/ML (0.00-0.045)
[2019-11-26] MEDS ORDERED: WARFARIN 4 MG TABLET PO SCH (18:00)
[2019-11-26] MEDS ORDERED: METOPROLOL TARTRATE 25 MG TABLET PO SCH (21:00)
[2019-11-26] MEDS: EZETIMIBE 10 MG TABLET PO SCH (21:31)
[2019-11-26] MEDS: NEBIVOLOL 5 MG TABLET PO SCH (21:31)
[2019-11-26] MEDS: CETIRIZINE 10 MG TABLET PO SCH (21:31)
[2019-11-26] MEDS: OXYBUTYNIN 5 MG TABLET PO SCH (21:32)
[2019-11-26] MEDS: ZALEPLON 5 MG CAPSULE PO PRN (21:32)
[2019-11-27 04:59] LABS: Basophils % 0.3 % (0.0-0.8); Eosinophils # 0.1 10*3/uL (0.0-0.87); Eosinophils % 1.3 % (0.00-10.9); Hematocrit 35.6 VOL% (35.7-47.0); Hemoglobin 11.5 GM/DL (12.0-16.0); Immature Granulocytes % 0.3 %; Immature Granulocytes Absolute 0.02 #; Lymphocytes % 32.4 % (21.3-54.2); Mean Corpuscular HGB Conc 32.3 GM/DL (32-36); Mean Corpuscular Volume 95.2 FL (87-102); Monocytes % 9.5 % (1.7-12.7); Neutrophils % 56.2 % (38.7-73.9); Platelet Count 163 T/CUMM (130-400); Red Blood Count 3.74 MC/CUMM (3.8-5.5); Red Cell Distribution Width 13.6 % (9.3-17.3); White Blood Count 6.2 T/CUMM (4-12)
[2019-11-27 05:16] LABS: Calcium 8.9 MG/DL (8.5-10.1); Osmolality,Calculated 274.8 MOS/KG (273-304)
[2019-11-27 05:29] LABS: PT Patient Result 21.3 SECS (9.6-12.2)
[2019-11-27] MEDS ORDERED: FLECAINIDE 100 MG TABLET PO ONE (08:15)
[2019-11-27] MEDS: GLUCOSAMINE 500 MG TABLET PO SCH (08:34)
[2019-11-27] MEDS: OXYBUTYNIN 5 MG TABLET PO SCH ×2 (08:34→21:45)
[2019-11-27] MEDS: MULTIVITAMIN (CENTRUM) TABLET PO SCH (08:35)
[2019-11-27] MEDS: DILTIAZEM 30 MG TABLET PO SCH ×3 (08:35→21:45)
[2019-11-27] MEDS: CALCIUM (CARBONATE)/VITAMIN D 600 MG-400 UNIT TABLET PO SCH (08:35)
[2019-11-27] MEDS: MAGNESIUM OXIDE 400 MG TABLET PO SCH (08:36)
[2019-11-27] MEDS: ASPIRIN EC 81 MG TABLET PO SCH (08:36)
[2019-11-27] MEDS: NEBIVOLOL 5 MG TABLET PO SCH (08:39)
[2019-11-27] MEDS: PANTOPRAZOLE 40 MG TABLET PO SCH (08:40)
[2019-11-27] MEDS: dilTIAZem Drip 125 MG/125 ML PREMIX IV SCH (11:20)
[2019-11-27] MEDS: ACETAMINOPHEN 325 MG TABLET PO PRN ×2 (15:31→21:52)
[2019-11-27] MEDS: CETIRIZINE 10 MG TABLET PO SCH (21:44)
[2019-11-27] MEDS: ZALEPLON 5 MG CAPSULE PO PRN (21:44)
[2019-11-27] MEDS: EZETIMIBE 10 MG TABLET PO SCH (21:45)
[2019-11-28 04:35] LABS: Basophils % 0.4 % (0.0-0.8); Eosinophils # 0.1 10*3/uL (0.0-0.87); Eosinophils % 2.1 % (0.00-10.9); Hematocrit 34.4 VOL% (35.7-47.0); Hemoglobin 11.3 GM/DL (12.0-16.0); Immature Granulocytes % 0.2 %; Immature Granulocytes Absolute 0.01 #; Lymphocytes # 1.8 10*3/uL (1.4-4.0); Lymphocytes % 34.6 % (21.3-54.2); Mean Corpuscular HGB Conc 32.8 GM/DL (32-36); Mean Corpuscular Volume 94.8 FL (87-102); Mean Platelet Volume 11.9 FL (9.6-12.0); Monocytes % 11.2 % (1.7-12.7); Neutrophils % 51.5 % (38.7-73.9); Platelet Count 159 T/CUMM (130-400); Red Blood Count 3.63 MC/CUMM (3.8-5.5); Red Cell Distribution Width 13.2 % (9.3-17.3); White Blood Count 5.3 T/CUMM (4-12)
[2019-11-28 04:42] LABS: INR 1.6; PT Patient Result 17.8 SECS (9.6-12.2)
[2019-11-28 05:05] LABS: Calcium 8.9 MG/DL (8.5-10.1); Osmolality,Calculated 276.5 MOS/KG (273-304)
[2019-11-28] MEDS ORDERED: WARFARIN 5 MG TABLET PO SCH (07:24)
[2019-11-28] MEDS ORDERED: ENOXAPARIN 60 MG/0.6 ML SYRINGE SUBCUT SCH (07:30)
[2019-11-28] MEDS: DILTIAZEM 30 MG TABLET PO SCH (08:15)
[2019-11-28] MEDS: ASPIRIN EC 81 MG TABLET PO SCH (08:15)
[2019-11-28] MEDS: NEBIVOLOL 5 MG TABLET PO SCH (08:15)
[2019-11-28] MEDS ORDERED: propofoL 200 MG/20 ML VIAL IV ONE (08:46)
[2019-11-28] MEDS ORDERED: ETOMIDATE 40 MG/20 ML VIAL IV ONE (08:46)
[2019-11-28] MEDS ORDERED: SODIUM CHLORIDE 0.9% 1,000 ML IV SCH (08:55)
[2019-11-28] MEDS ORDERED: FLECAINIDE 50 MG TABLET PO SCH (09:00)
[2019-11-28 11:43] VITALS: BP 124/68
[2019-11-28] MEDS: CALCIUM (CARBONATE)/VITAMIN D 600 MG-400 UNIT TABLET PO SCH (12:30)
[2019-11-28] MEDS: MULTIVITAMIN (CENTRUM) TABLET PO SCH (12:30)
[2019-11-28] MEDS: OXYBUTYNIN 5 MG TABLET PO SCH (12:30)
[2019-11-28] MEDS: PANTOPRAZOLE 40 MG TABLET PO SCH (12:31)
[2019-11-28] MEDS: MAGNESIUM OXIDE 400 MG TABLET PO SCH (12:31)
[2019-11-28] MEDS: GLUCOSAMINE 500 MG TABLET PO SCH (12:31)
[2019-11-28] MEDS ORDERED: NEBIVOLOL 5 MG TABLET PO SCH (21:00)
== END 2019-11-28 14:14 | disposition home or self-care (01) | DRG 309 ==
LOC: N.ED 11:01 → N.EDINP 12:41 → N.TELEN 13:15
PROVIDERS: ADMIT Internal Medicine Cardiovascular Disease; ATTEND Internal Medicine Cardiovascular Disease